=== PATIENT | male | born 1935 | race Asian ===

== ENCOUNTER 2021-11-02 12:28 | Outpatient (CLI) | payer MEDICARE, BC | END 2021-11-02 12:29 | disposition home or self-care (01) | LOC: CSHRAD 12:28 | PROVIDERS: ATTEND Family Medicine | DX: G45.9 Transient cerebral ischemic attack, unspecified (principal) | CPT/HCPCS: 71046 ==

== ENCOUNTER 2021-11-06 09:49 | Outpatient (CLI) | payer MEDICARE, BC | END 2021-11-06 09:50 | disposition home or self-care (01) | LOC: CSHULT 09:49 | PROVIDERS: ATTEND Family Medicine | DX: G45.9 Transient cerebral ischemic attack, unspecified (principal) | CPT/HCPCS: 93880 ==

== ENCOUNTER 2023-04-28 15:59 | Outpatient (CLI) | payer MEDICARE, BC | END 2023-04-28 16:00 | disposition home or self-care (01) | LOC: CSHRAD 15:59 | PROVIDERS: ATTEND Internal Medicine | DX: M54.50 Low back pain, unspecified (principal); M54.6 Pain in thoracic spine; M47.816 Spondylosis without myelopathy or radiculopathy, lumbar region; M47.814 Spondylosis without myelopathy or radiculopathy, thoracic region; I25.10 Atherosclerotic heart disease of native coronary artery without angina pectoris; I12.9 Hypertensive chronic kidney disease with stage 1 through stage 4 chronic kidney disease, or unspecified chronic kidney disease; E11.22 Type 2 diabetes mellitus with diabetic chronic kidney disease; N18.4 Chronic kidney disease, stage 4 (severe); E11.8 Type 2 diabetes mellitus with unspecified complications | CPT/HCPCS: 36415; 72070; 72100; 80053; 80061; 82306; 83036; 83540; 83550; 84443; 85025 ==

== ENCOUNTER 2023-06-09 13:45 | Outpatient (CLI) | payer MEDICARE | END 2023-06-09 13:46 | disposition home or self-care (01) | LOC: CSHSPEC 13:45 | PROVIDERS: ATTEND Internal Medicine | DX: M54.50 Low back pain, unspecified (principal); M54.6 Pain in thoracic spine; M47.816 Spondylosis without myelopathy or radiculopathy, lumbar region; Q76.49 Other congenital malformations of spine, not associated with scoliosis | CPT/HCPCS: 72148 ==